=== PATIENT | female | born 1995 | race Caucasian/White ===

== ENCOUNTER 2017-05-07 10:16 | Emergency (ER) | payer BC, SELFPAY ==
[2017-05-07 10:17] VITALS: BP 125/84; PULSE 110; RESP 18; TEMP 36.6; O2SAT 100; BMI 34.0
--- NOTE | 2017-05-07 10:32 | ED.VISSUMM ---
- ER Visit Summary Date of Service: 05/07/17 Chief Complaint: [Sore throat and upper respiratory infection] History of Present Illness: The patient is a 21 F [presents to the emergency department with cough, congestion, sinus pressure that started about 2 weeks ago. One week ago patient was seen by her primary care physician in the office and had a negative influenza screen. 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 Patient states today's the last day of her Z-Ion and she continues to complain of a sore throat. Patient denies any fever. Her cough is now minimal and nonproductive.] Physical Examination: [HEENT-PERRLA, EOMI. Cranial nerves II through XII grossly intact. TMs clear. Mucous membranes moist. No adenopathy. Normal pharyngeal erythema. No exudates. Uvula in the midline. No trismus. No posterior or anterior cervical lymphadenopathy noted. Cardiovascular-regular rate and rhythm without murmur or ectopy Lungs-clear to auscultation, chest wall stable without crepitus or subcu emphysema Abdomen-normoactive bowel sounds, soft, nontender, no rebound or rigidity, no peritoneal signs. Extremities-intact ?4, normal range of motion, normal pulses, atraumatic] Test Results: [None indicated] Emergency Department Course and Treatment: [At this point I reassured patient that she looked well I did not feel any further testing is indicated. Patient advised to finish her Z-Ion and otherwise this will only be symptomatic treatment for her sore throat. Patient states that she can manage with ibuprofen and does not want anything stronger for pain. Patient did want a work excuse for today being that she did not go to work and did come to the emergency department.] Treatment Plan: [Patient to push fluids and use ibuprofen as needed for discomfort.] Patient understands her illness could still be viral and may last up to 2 weeks. Disposition: [Discharged to home in stable condition. Patient to return if difficulty swallowing, increased difficulty breathing, high fevers, or condition should worsen in any way.] Impression: [Upper respiratory infection] This note was generated with [employer] dictation software. It may contain incorrect words, spelling, and punctuation that were not noted in review of the chart prior to signing ED Disposition - Plan for ED Patient: Chief Complaint: Cold Sx Referrals: Yohan Navarro MD [Primary Care Provider] -
--- NOTE | 2017-05-07 10:35 | ED.DCSUM_ITS ---
- ER Visit Summary Date of Service: 05/07/17 Chief Complaint: [Sore throat and upper respiratory infection] History of Present Illness: The patient is a 21 F [presents to the emergency department with cough, congestion, sinus pressure that started about 2 weeks ago. One week ago patient was seen by her primary care physician in the office and had a negative influenza screen. 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 Patient states today's the last day of her Z-Ion and she continues to complain of a sore throat. Patient denies any fever. Her cough is now minimal and nonproductive.] Physical Examination: [HEENT-PERRLA, EOMI. Cranial nerves II through XII grossly intact. TMs clear. Mucous membranes moist. No adenopathy. Normal pharyngeal erythema. No exudates. Uvula in the midline. No trismus. No posterior or anterior cervical lymphadenopathy noted. Cardiovascular-regular rate and rhythm without murmur or ectopy Lungs-clear to auscultation, chest wall stable without crepitus or subcu emphysema Abdomen-normoactive bowel sounds, soft, nontender, no rebound or rigidity, no peritoneal signs. Extremities-intact ?4, normal range of motion, normal pulses, atraumatic] Test Results: [None indicated] Emergency Department Course and Treatment: [At this point I reassured patient that she looked well I did not feel any further testing is indicated. Patient advised to finish her Z-Ion and otherwise this will only be symptomatic treatment for her sore throat. Patient states that she can manage with ibuprofen and does not want anything stronger for pain. Patient did want a work excuse for today being that she did not go to work and did come to the emergency department.] Treatment Plan: [Patient to push fluids and use ibuprofen as needed for discomfort.] Patient understands her illness could still be viral and may last up to 2 weeks. Disposition: [Discharged to home in stable condition. Patient to return if difficulty swallowing, increased difficulty breathing, high fevers, or condition should worsen in any way.] Impression: [Upper respiratory infection] This note was generated with [employer] dictation software. It may contain incorrect words, spelling, and punctuation that were not noted in review of the chart prior to signing ED Disposition - Plan for ED Patient: Chief Complaint: Cold Sx Referrals: Yohan Navarro MD [Primary Care Provider] -
--- NOTE | 2017-05-07 10:36 | ED.DEP ---
ED Disposition - Plan for ED Patient: Chief Complaint: Cold Sx Instructions: ED Upper Resp Infec Abx Tx Referrals: Yohan Navarro MD [Primary Care Provider] - 3-5 Days
== END 2017-05-07 10:45 | disposition home or self-care (01) ==
PROVIDERS: Emergency Provider Emergency Medicine; Family Provider Family Medicine; PCP Family Medicine
DX: J06.9 Acute upper respiratory infection, unspecified (principal); Z79.899 Other long term (current) drug therapy
CPT/HCPCS: 99282

== ENCOUNTER → 2017-07-18 09:22 | Outpatient (CLI) | payer BC, SELFPAY ==
[2017-07-18 10:33] LABS: Cholesterol 193 mg/dL (200); High Density Lipoprotein 51 mg/dL; Triglycerides 105 mg/dL; Very Low Density Lipoprotein 21 mg/dL (5-40)
== END ==
PROVIDERS: Family Provider Family Medicine; PCP Family Medicine; Visit Provider Family Medicine
DX: Z00.00 Encounter for general adult medical examination without abnormal findings (principal)
CPT/HCPCS: 36415; 80061

== ENCOUNTER → 2017-08-28 11:40 | Outpatient (CLI) | payer BC, SELFPAY ==
--- NOTE | 2017-08-28 11:40 | DT_ITS ---
This patient was seen during an EMR downtime August 26, 2017 - September 02, 2017. This patient may have a combination of paper and electronic documentation or all paper documentation. All documentation is viewable within the e-chart portion of [employer] for each patient visit.
== END ==
PROVIDERS: Family Provider Family Medicine; PCP Family Medicine; Visit Provider Otolaryngology Otolaryngology/Facial Plastic Surgery
DX: J02.9 Acute pharyngitis, unspecified (principal)
CPT/HCPCS: 87070

== ENCOUNTER → 2017-09-09 08:37 | Outpatient (CLI) | payer BC, SELFPAY ==
--- NOTE | 2017-09-09 08:43 | RAD_ITS ---
STUDY: X-RAY - ESOPHAGUS (BARIUM SWALLOW) WITH FLUOROSCOPY REASON FOR EXAM: Female, 22 years old. Difficulty swallowing. TECHNIQUE: 15 view(s) of the esophagus were obtained following swallowing of barium. FLUOROSCOPY TIME (if supplied): (0:24) minutes/seconds COMPARISON: None. FINDINGS: There is no demonstrated esophageal foreign body. There is no demonstrated stricture or mucosal abnormality. Normal gastroesophageal junction, without a demonstrated hiatal hernia. The patient ingested a 12 mm tablet of barium without any difficulty. Normal visualized aortic arch and descending thoracic aorta. Normal visualized pulmonary parenchyma. Normal visualized osseous structures of the thorax. RAD/Esophagus Only IMPRESSION: Normal plain film x-ray examination (barium swallow) of the esophagus. Electronically Signed: Pineda Arreaga MD at 10:38 EDT Tel [phone], Service support ,
== END ==
PROVIDERS: Family Provider Family Medicine; PCP Family Medicine; Visit Provider Otolaryngology Otolaryngology/Facial Plastic Surgery
DX: R49.0 Dysphonia (principal)
CPT/HCPCS: 74220

== ENCOUNTER → 2017-11-01 10:37 | Outpatient (CLI) | payer BC, SELFPAY | PROVIDERS: Family Provider Family Medicine; PCP Family Medicine; Visit Provider Family Medicine | DX: N39.0 Urinary tract infection, site not specified (principal) | CPT/HCPCS: 87086; 87088 ==

== ENCOUNTER 2020-01-01 07:12 | Emergency (ER) | payer OTHER, SELFPAY ==
[2020-01-01 07:15] VITALS: BP 141/82; PULSE 109; RESP 18; TEMP 36.3; O2SAT 97; BMI 43.9
--- NOTE | 2020-01-01 07:34 | CT_ITS ---
STUDY: CT BRAIN WITHOUT CONTRAST REASON FOR EXAM: Female, 24 years old. ALLERGIC REACTION TO MIGRAINE MED -- HEADACHE, UPPER EXT BILAT PARASTHESI RADIATION DOSAGE (If Supplied By Facility): CTDIvol = ( 44.99 ) mGy, DLP = ( 745.49 ) mGycm TECHNIQUE: Transaxial CT imaging of the brain was performed without administration of intravenous contrast material. Individualized dose optimization techniques were used for this CT. COMPARISON: 01/12/2012 FINDINGS: Normal soft tissue structures. Normal calvarium. Normal size ventricles and extra-axial spaces for the patient''s age. Normal white matter tracts of the cerebral hemispheres. Normal basal ganglia and thalami. Normal brainstem. Normal cerebellum. There is no intracranial hemorrhage. There are no findings of an acute ischemic infarction. Normal visualized paranasal sinuses. CT/Brain/Head without Contrast IMPRESSION: Normal unenhanced CT scan of the brain. Electronically Signed: Alirio Vale DO at 8:09 EDT Tel [phone], Service support ,
--- NOTE | 2020-01-01 07:52 | ED.DCSUM_ITS ---
- ER Visit Summary Date of Service: 01/01/20 Chief Complaint: Allergic reaction History of Present Illness: The patient is a [address] Holt. Patient reports that she has been getting migraines lately and that at 615 this morning she took Imitrex for the first time. She reports that approximately 15 minutes later she began having muscle aching and tingling in her arms bilaterally. She does have a history of anxiety and states that she does feel very anxious. Patient denies any family history of migraines or aneurysms. She is never had any imaging of her brain. She denies any other allergic symptoms. No rash. No swelling of her tongue. No difficulty breathing. Does report that she has a headache this 5-10 severity and nausea. No vomiting. No abdominal pain or diarrhea. Her last menstrual period was this week. Physical Examination: Vitals: Stable. Afebrile. General: Well-nourished and well-developed. Head: Normocephalic atraumatic. Neck: Supple, no lymphadenopathy. No JVD. Nontender. Cardiovascular: Regular rate and rhythm. No murmurs. Respiratory: No respiratory distress. Clear to auscultation bilaterally. Abdominal: Soft, nontender, nondistended, normal bowel sounds. No guarding, rebound, or peritoneal signs. Back: Nontender. Extremities: Nontender, no edema. Skin: Normal color, no rash. Neurologic: Alert and oriented ?3. Cranial nerves II through XII are intact. Normal strength and sensation. Psych: Normal affect. Test Results: CT brain shows no acute disease Emergency Department Course and Treatment: I had a prolonged discussion the patient about the fact that it we need to just wait for the Imitrex to wear off. I did offer to treat her migraine or allergic reaction. However, I am concerned that giving her other medications may confuse the picture of the adv erse reaction that she is experiencing to Imitrex. Treatment Plan: Patient will be discharged instructions to not take Imitrex anymore. She is given a prescription for Reglan for her headaches. Follow-up with her primary care physician 1 to 2 days if not improving. Return to the emergency department for any worsening symptoms. Disposition: To home in improved and stable condition. Impression: 1. Adverse reaction to Imitrex. 2. Migraine headache. This note was generated with [employer] software. It may contain incorrect words, spelling, and punctuation that were not noted in review of the chart prior to signing ED Disposition - Plan for ED Patient: Instructions: ED Drug React Adverse Other Prescriptions: Metoclopramide [Reglan] 10 mg PO 4X/DAY PRN #20 tablet PRN Reason: Headache Referrals: Kenya Dumont MD [Primary Care Provider] - 1-2 Days if not improving
== END 2020-01-01 08:14 | disposition home or self-care (01) ==
LOC: ED 08:05
PROVIDERS: Emergency Provider Emergency Medicine
DX: R20.2 Paresthesia of skin (principal); M79.10 Myalgia, unspecified site; T39.8X5A Adverse effect of other nonopioid analgesics and antipyretics, not elsewhere classified, initial encounter; Y92.9 Unspecified place or not applicable; G43.909 Migraine, unspecified, not intractable, without status migrainosus; F32.9 Major depressive disorder, single episode, unspecified; F41.9 Anxiety disorder, unspecified
CPT/HCPCS: 70450; 99282

== ENCOUNTER 2020-03-31 02:00 | Emergency (ER) | payer OTHER, SELFPAY ==
[2020-03-31 02:03] VITALS: BP 128/116; PULSE 128; RESP 18; TEMP 36.8; O2SAT 95; BMI 43.5
[2020-03-31] MEDS: 0.9% Normal Saline 1,000 ML 1000 ML IV (02:14)
[2020-03-31] MEDS: Ondansetron 4 MG/2 ML Vial IV (02:14)
--- NOTE | 2020-03-31 02:52 | ED.DCSUM_ITS ---
History of Present Illness Chief Complaint: Nausea/Vomiting/Diarrhea Informant: Patient Onset: Hours Context: Sudden Onset Timing: Intermittent Quality: Colicky abdominal pain with nausea, vomiting and diarrhea Location: Generalized Current Severity: Mild Maximum Severity: Severe Worsened by: Vomiting and diarrhea Relieved by: Nothing Associated Symptoms: Dry mouth and concern for dehydration Narrative: Patient is a 24-year-old female who presents with abdominal pain that is colicky in nature with nausea, vomiting diarrhea. This started after she ate at 1700. Other individuals ate which she had and have no symptoms. She denies fever or chills. She denies HEENT symptoms. She denies cardiac respiratory symptoms. She denies rash. She denies any ill exposures. 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 Prior similar symptoms: No Recent Illness/Hospitalization: No - Past Medical History (1) No significant past medical history Status: Acute Past Medical History - Allergies and Home Meds Allergies/Adverse Reactions: Allergies cefdinir Allergy (Verified 03/31/20 02:03) Hives Penicillins Allergy (Verified 03/31/20 02:03) Hives prednisone Adverse Reaction (Verified 03/31/20 02:03) headache Primary Care Physician: Kurtis Koenig MD [Primary Care Provider] - 3-5 Days if not improving Prior records reviewed: Yes Surgical History: cholecystectomy Lives: Alone Smoking Status: Never smoker Alcohol: None Drugs: None Review of Systems General: Reports: Malaise. Denies: Chills, Fever, Subjective Eyes: Denies: Visual changes - bilaterally, Blurred Vision - bilaterally ENT: Denies: Rhinorrhea, Sore throat Cardiovascular: Denies: Chest pain, Palpitations Respiratory: Denies: Dyspnea, Cough, Dyspnea on exertion Gastrointestinal: Reports: Abdominal pain, Nausea, Vomiting, Diarrhea. Denies: Melena, Hematochezia Genitourinary: Denies: Dysuria, Hematuria, Frequency Musculoskeletal: Denies: Myalgias, Arthralgias, Back pain Skin: Denies: Rash Neurological: Denies: Weakness, Parasthesia Hematologic: Denies: Easy bruising, Easy bleeding Physical Exam Vital Signs/Narrative: Vital Signs Temp Pulse Resp BP Pulse Ox 03/31/20 02:03 98.3 F 128 H 18 128/116 H 95 Inital Vital Signs reviewed: Yes General: Well nourished, Well developed Head: Normocephalic, Atraumatic Eyes: Perrl, EOMI. Negative for: Pale conjunctiva, Scleral icterus ENT: No rhinorrhea, Dry mucous membranes Neck: Supple, Nontender, No lymphadenopathy Cardiovascular: Regular rhythm, No murmurs, Normal S1, Normal S2, Tachycardia Respiratory: No distress, CTA bilaterally Abdomen: Soft, Nontender, Nondistended, No masses, Hyperactive bowel sounds, - - Are noted, cholecystectomy. Negative for: Normal bowel sounds, Hepatomegaly, Splenomegaly Rectal: Deferred Back: Nontender, Normal Inspection Extremities: Nontender, No edema Skin: No rash, No Trauma, Pallor. Negative for: Normal color, Cyanosis, Diaphoresis, Jaundice Neurological: Alert, Oriented x3, Cranial nerves II-XII grossly intact, Normal Strength, Normal Sensation Psychological: Normal affect Diagnostic/Tx/Re-eval - Medical Decision Making Medically patient is dehydrated. 1 L of normal saline was ordered. Zofran was ordered. Now will order Imodium and Bentyl. Will then have nurse perform p.o. challenge. Since she is young on no antihypertensive meds with no significant past medical history laboratory tests are not indicated. I was informed by patient's nurse at 0440 that she feels much better. She will be discharged to home. ED Disposition - Plan for ED Patient: Disposition: Home or Assisted Living Diagnosis: Abdominal pain, vomiting, and diarrhea, Mild dehydration Instructions: ED Vomiting and Diarrhea ... Prescriptions: Dicyclomine HCl [Bentyl] 20 mg PO TIDAC #10 cap Prescription Printed Referrals: Kurtis Koenig MD [Primary Care Provider] - 3-5 Days if not improving
[2020-03-31] MEDS: Loperamide 2 MG Capsule 4 MG PO (03:03)
[2020-03-31] MEDS: Dicyclomine 10 MG Capsule 20 MG PO (03:03)
[2020-03-31] MEDS: Metoclopramide 10 MG/2 ML Vial 5 MG IV (03:41)
[2020-03-31 04:55] VITALS: RESP 16
== END 2020-03-31 04:55 | disposition home or self-care (01) ==
PROVIDERS: Emergency Provider Emergency Medicine; PCP Family Medicine
DX: R10.84 Generalized abdominal pain (principal); R11.2 Nausea with vomiting, unspecified; R19.7 Diarrhea, unspecified; E86.0 Dehydration; Z90.49 Acquired absence of other specified parts of digestive tract
CPT/HCPCS: 96361; 96374; 96375; 99283; J7030; A4216; J2405

== ENCOUNTER 2020-08-28 08:33 | Emergency (ER) | payer MEDICAID, SELFPAY ==
[2020-08-28 08:34] VITALS: BP 118/94; PULSE 105; RESP 16; TEMP 36.4; O2SAT 97; BMI 44.8
--- NOTE | 2020-08-28 09:17 | EDS_ITS ---
HPI History of Present Illness Chief Complaint: Headache Informant: patient Onset/Context/Timing Onset: Yesterday Mechanism/Context: Blunt Injury (accidentally hit head w/ trunk lid of her car while closing it) Quality of Pain: Aching Location: Head Current Severity: Mild Maximum Severity: Moderate Worsened by: Light Relieved by: Ibuprofen Associated Symptoms Associated Symptoms: Negative for Parasthesias, Weakness, Loss of function, Inability to ambulate, Loss of consciousness and Amnesia Narrative Narrative: Patient accidentally hit herself in the head with the trunk of her car she was closing it yesterday. There is no loss of consciousness. She has had no focal neurologic symptoms. She has had a little photophobia and a headache, no vomiting mental status changes or neck pain. She takes no blood thinning medications or antiplatelet medications. [facility] Medical History Anxiety Depression Home Medications María Elena-D 24 Hour 1 tab.sr PO DAILY 10/27/13 [History Last Taken Unknown] fluoxetine 40 mg PO DAILY 01/01/20 [History Last Taken Unknown] norethindrone (contraceptive) 0.35 mg PO DAILY 01/01/20 [History Last Taken Unknown] buspirone 5 mg PO QHS 03/31/20 [History Last Taken Unknown] dicyclomine 20 mg PO TIDAC #10 cap 03/31/20 [Rx Last Taken Unknown] Allergy/AdvReac Type Severity Reaction Status Date / Time cefdinir Allergy Hives Verified 08/28/20 08:37 iodine Allergy Hives Verified 08/28/20 08:37 Penicillins Allergy Hives Verified 08/28/20 08:37 prednisone AdvReac headache Verified 08/28/20 08:37 sumatriptan AdvReac Other Verified 08/28/20 08:37 Social History Smoking Status: Never smoker ROS ROS ED Constitutional Constitutional ED: Denies chills or fever(s) Eyes Eyes: Reports photophobia; Denies change in vision or diplopia ENT ENT ED: Reports as per HPI; Denies rhinorrhea or sore throat Cardiovascular Cardiovascular: Denies chest pain or palpitations Respiratory/Chest Respiratory/Chest: Denies cough or dyspnea Gastrointestinal Gastrointestinal: Denies abdominal pain, diarrhea, nausea or vomiting Genitourinary Genitourinary ED: Denies dysuria or hematuria Musculoskeletal Musculoskeletal: Denies back pain or neck pain Integumentary Denies abscess or rash Neurologic Neurologic: Reports headache(s); Denies paresthesias or weakness Psychiatric Psychiatric: Denies anxiety or suicidal thoughts EXAM Physical Exam Const Vital Signs: 08/28/20 08:34 Temperature 97.5 F L Temperature Source Temporal Pulse Rate 105 H Respiratory Rate 16 Blood Pressure 118/94 H Blood Pressure Mean 102 Pulse Ox 97 Oxygen Delivery Method Room Air Positive well nourished and well developed General Appearance ED: well developed and NAD HEENT Reports moist mucous membranes HEENT Narrative: Mildly tender right high occipital scalp without hematoma, evidence of trauma, crepitance, depression normocephalic, normal to inspection and atraumatic Eyes PERRL and EOMs intact bilaterally Neck full ROM and supple Resp normal respiratory effort and clear to auscultation bilaterally Cardio regular rate, regular rhythm and no murmurs GI non-tender and non-distended Auscultation: normoactive bowel sounds Palpation: soft Back/Spine no CVA tenderness General Back: other FROM Extremity normal to inspection General Extremety ED: Negative for edema, pulses abnormal or tenderness General Extremity: Negative for edema or pulses abnormal Neuro oriented x3, CN's II-XII intact bilaterally and no sensory deficits noted Sensorium / Orientation: awake and alert Motor Exam: strength 5/5 throughout Skin no rashes or lesions noted and no wounds MDM MDM MDM Narrative Medical decision making narrative: GCS 15, patient is well-appearing, having minor concussion symptoms after a relatively minor head injury. She is reassured, supportive care advised and follow-up if symptoms persist 1 week or longer. She does not require CT scanning via the [place] head CT rule at this time, we discussed reasons to return. She is comfortable with that plan. Discharge Plan Triage Chief Complaint: Headache ED Provider: Moy Rosales Dx/Rx/DC Orders Clinical Impression: Closed head injury without loss of consciousness Instructions: ED Head Injury (Adult) Prescriptions: No Action María Elena-D 24 Hour 1 TAB.SR tablet extended release 24 hr 1 tab.sr PO DAILY RF: 0 norethindrone (contraceptive) 0.35 MG tablet 0.35 mg PO DAILY RF: 0 fluoxetine 20 MG capsule 40 mg PO DAILY RF: 0 buspirone 5 MG tablet 5 mg PO QHS RF: 0 dicyclomine 10 MG capsule 20 mg PO TIDAC Qty: 10 RF: 0 Primary Care Provider: Kurtis Koenig Referrals: Kurtis Koenig MD [Primary Care Provider] - 1 Week if not improving Disposition Disposition: Home, self care
[2020-08-28 09:32] VITALS: PULSE 79; RESP 18; O2SAT 99
--- NOTE | 2020-08-28 09:32 | ED.RN ---
THIS NURSE REVIEWED D/C INSTRUCTIONS WITH PT. PT VERBALIZED UNDERSTANDING OF INSTRUCTIONS. PT DENIES FURTHER NEEDS OR QUESTIONS AT THIS TIME. PT AMBULATES FROM ROOM ON OWN WITHOUT ASSISTANCE FROM STAFF
== END 2020-08-28 09:33 | disposition home or self-care (01) ==
LOC: ED 09:30
PROVIDERS: Emergency Provider Emergency Medicine; PCP Family Medicine
DX: S09.90XA Unspecified injury of head, initial encounter (principal); F41.9 Anxiety disorder, unspecified; X58.XXXA Exposure to other specified factors, initial encounter; Z79.899 Other long term (current) drug therapy
CPT/HCPCS: 99282

== ENCOUNTER 2021-04-03 08:00 | Emergency (ER) | payer OTHER, MEDICAID, SELFPAY ==
[2021-04-03 08:01] VITALS: BP 120/74; PULSE 126; RESP 18; TEMP 36.6; O2SAT 95; BMI 43.9
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
[2021-04-03] MEDS: 0.9% Normal Saline 1,000 ML 1000 ML IV (09:31)
[2021-04-03] MEDS: Ketorolac 30 MG/ML Syringe IV (09:31)
[2021-04-03 09:39] LABS: Anion Gap 7 (5-15); BUN 8 mg/dL (7-18); BUN/Creat Ratio 12.2 RATIO (10-20); Chloride 105 mmol/L (98-107); Creatinine, Serum 0.66 mg/dL (0.55-1.02); EST Glomerular Filtration Rate 117 mL/min (>60); Est Glom Filt Rate - Afr Amer 142 mL/min (>60); Estimated Creatinine Clearance 103.95 ml/min; Glucose 85 mg/dL (74-106); Potassium 3.9 mmol/L (3.5-5.1); Sodium Level 139 mmol/L (136-145)
[2021-04-03 11:28] VITALS: PULSE 80; RESP 17; O2SAT 98
== END 2021-04-03 11:29 | disposition home or self-care (01) ==
PROVIDERS: Emergency Provider Emergency Medicine; PCP Family Medicine; Visit Provider Emergency Medicine
DX: J32.9 Chronic sinusitis, unspecified (principal); F41.9 Anxiety disorder, unspecified; F32.A Depression, unspecified; K21.9 Gastro-esophageal reflux disease without esophagitis; G43.909 Migraine, unspecified, not intractable, without status migrainosus; Z79.82 Long term (current) use of aspirin; Z79.899 Other long term (current) drug therapy; R19.7 Diarrhea, unspecified
CPT/HCPCS: 80048; 96361; 96374; 99283; J7030; A4216

== ENCOUNTER 2021-04-12 16:51 | Emergency (ER) | payer OTHER, MEDICAID, SELFPAY ==
[2021-04-12 16:52] VITALS: BP 119/76; PULSE 108; RESP 20; TEMP 36.4; O2SAT 98; BMI 44.5
--- NOTE | 2021-04-12 16:55 | EKG12_ITS ---
Test Reason : CP Blood Pressure : / mmHG Vent. Rate : 093 BPM Atrial Rate : 093 BPM P-R Int : 116 ms QRS Dur : 072 ms QT Int : 350 ms P-R-T Axes : 074 074 059 degrees QTc Int : 435 ms Normal sinus rhythm Normal ECG Confirmed by FLIP JEAN, VASQUEZ ([id number]), magazine editor GAYLE MERA ([id number]) on 04/14/2021 8:57:54 AM Referred By: MAGI/ALLAN Confirmed By:VASQUEZ CASTELAN MD
[2021-04-12 16:56] VITALS: RESP 20; O2SAT 98
--- NOTE | 2021-04-12 17:09 | NURSING ---
NO OLD EKGS
--- NOTE | 2021-04-12 17:35 | RAD_ITS ---
STUDY: X-RAY CHEST REASON FOR EXAM: Female, 25 years old. CHEST PAIN COUGH TECHNIQUE: XR Chest 1 View COMPARISON: None FINDINGS: There is no demonstrated pleural abnormality. Normal size heart. Normal mediastinum and emma. Normal visualized pulmonary arteries. Normal visualized aortic arch and descending thoracic aorta. Normal visualized thoracic spine. Normal visualized ribs, clavicles, and shoulders. There is no demonstrated abnormality of the visualized soft tissue structures of the upper abdomen. RAD/Chest 1 View (Portable) IMPRESSION: There are no acute findings. Electronically Signed: Daniel Oliva MD at 17:57 EST , Service support ,
[2021-04-12 17:37] LABS: Anion Gap 7 (5-15); BUN 13 mg/dL (7-18); BUN/Creat Ratio 19.7 RATIO (10-20); Calcium,Total 8.5 mg/dL (8.5-10.1); Chloride 109 mmol/L (98-107); Creatinine, Serum 0.66 mg/dL (0.55-1.02); EST Glomerular Filtration Rate 116 mL/min (>60); Est Glom Filt Rate - Afr Amer 141 mL/min (>60); Estimated Creatinine Clearance 103.95 ml/min; Glucose 103 mg/dL (74-106); Potassium 3.8 mmol/L (3.5-5.1); Sodium Level 139 mmol/L (136-145)
[2021-04-12 18:03] LABS: Absolute Lymphocyte Count 3.58 X10^3/uL (0.83-4.51); Absolute Neutrophil Count 4.6 X10^3/uL (2.0-7.7); Basophil# 0.04 X10^3/uL; Basophil% 0.4 % (0-1); Eosinophil# 0.27 X10^3/uL; Eosinophils% 2.9 % (0-5); Hemoglobin 13.5 g/dL (12.0-15.0); Lymphocyte # 3.58 X10^3/ul (0.83-4.51); Mean Corp Hgb Conc 33.8 g/dL (32-36); Mean Corpuscular Hgb 29.1 pg (27.0-32.0); Mean Corpuscular Volume 86.2 fL (81-99); Mean Platelet Vol. 10.2 fl (6.2-12.0); Monocyte# 0.66 X10^3/uL; Monocyte% 7.2 % (0-10); NRBC Flagged by Analyzer 0 % (0-5); Neutrophil # 4.59 X10^3/uL (2.7-7.7); Neutrophil % 50.2 % (47-70); Platelet Count 363 K/mm3 (150-450); RBC Distribution Width CV 14.2 % (11.6-14.6); RBC Distribution Width SD 44.7 fl (35.1-43.9); Red Blood Count 4.64 M/mm3 (4.2-5.4); White Blood Count 9.2 K/mm3 (4.4-11.0)
[2021-04-12 18:18] VITALS: BP 138/77; PULSE 76; RESP 15; TEMP 36.8; O2SAT 97
[2021-04-12 18:19] LABS: Mucous, Urine 0 SEEN /hpf (<or=2+); Red Blood Cells-Urine 0 SEEN /hpf (0-5)
[2021-04-12 18:22] VITALS: O2SAT 97
[2021-04-12 18:27] LABS: Color, Urine Yellow (Yellow); Glucose, Dipstick Normal (Normal); Ketone-Dipstick 5 mg/dl (Negative); Leukocyte Esterase-Dipstick 25 /ul (Negative); Nitrite-Dipstick Negative (Negative); Occult Blood-Urine Negative /ul (Negative); Protein-Dipstick 15 mg/dl (Negative); Urine Bilirubin Dipstick Negative (Negative); Urine Clarity Clear (Clear); Urine Urobilinogen Normal (Normal)
[2021-04-12 18:38] LABS: Bacteria 1+ /hpf (None Seen); Squamous Epithelial Cells - UA 0-5 SEEN /hpf (5-10); White Blood Cells 0-5 SEEN /hpf (0-5)
[2021-04-12 18:42] LABS: Internal QC Validated? YES +Cl - CLEAR BKGD; Pregnancy, Urine Negative Negative
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
[2021-04-12 19:36] LABS: D-Dimer Quantitative (DVT/PE) 0.31 FEU/ug/m (0.27-0.49)
[2021-04-12 20:03] VITALS: BP 138/74; PULSE 62; RESP 15; O2SAT 97
== END 2021-04-12 20:04 | disposition home or self-care (01) ==
PROVIDERS: Emergency Provider Emergency Medicine; PCP Family Medicine; Visit Provider Emergency Medicine
DX: U07.1 COVID-19 (principal); Z68.41 Body mass index [BMI] 40.0-44.9, adult; E66.9 Obesity, unspecified; F32.A Depression, unspecified; F41.9 Anxiety disorder, unspecified; Z79.82 Long term (current) use of aspirin; Z79.899 Other long term (current) drug therapy
CPT/HCPCS: 71045; 80048; 81001; 81025; 85025; 85379; 93005; 94760; 99283

== ENCOUNTER 2021-05-23 10:52 | Emergency (ER) | payer MEDICAID, SELFPAY ==
[2021-05-23 10:53] VITALS: BP 132/82; PULSE 108; RESP 16; TEMP 35.8; O2SAT 98; BMI 44.2
--- NOTE | 2021-05-23 11:03 | VDLE_ITS ---
Reason For Study: Pain Procedure LEFT This is a venous duplex using B-mode, color GSV is normal. flow and spectral Doppler. CFV is compressible, spontaneous, phasic, Exam performed portable in ED. competent, and demonstrates normal A preliminary report was called and/or faxed augmentation. to ED. FV is compressible, spontaneous, phasic, competent and demonstrates normal augmentation. POP V is compressible, spontaneous, phasic, competent and demonstrates normal augmentation. T/P Trunk is compressible. PTV is compressible. LT PerV is compressible. VL/Venous Duplex US, Unilateral Interpretation Summary There is no evidence of left lower extremity deep vein thrombosis. Left great s aphenous vein appears patent and compressible segmentally. Ordering Physician: Alexandru Fox Referring Physician: Kurtis Koenig Performed By: Reyna Rosenthal RVT
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
== END 2021-05-23 12:07 | disposition home or self-care (01) ==
PROVIDERS: Emergency Provider Emergency Medicine; PCP Family Medicine; Visit Provider Emergency Medicine
DX: M54.42 Lumbago with sciatica, left side (principal); U09.9 Post COVID-19 condition, unspecified; F32.A Depression, unspecified; F41.9 Anxiety disorder, unspecified; Z79.82 Long term (current) use of aspirin; Z79.899 Other long term (current) drug therapy
CPT/HCPCS: 93971; 99282

== ENCOUNTER 2021-10-29 07:04 | Emergency (ER) | payer OTHER, MEDICAID, SELFPAY ==
[2021-10-29 07:04] VITALS: BP 123/85; PULSE 98; RESP 16; TEMP 36.7; O2SAT 97; BMI 45.7
[2021-10-29 07:06] VITALS: BP 123/85; PULSE 74; RESP 16; TEMP 36.8; O2SAT 99
--- NOTE | 2021-10-29 07:17 | CT_ITS ---
EXAM: CT ABDOMEN AND PELVIS WITHOUT INTRAVENOUS CONTRAST CLINICAL INDICATION: Pain TECHNIQUE: Helically acquired images were obtained of the abdomen and pelvis without intravenous contrast. This CT exam was performed using one or more of the following dose reduction techniques: automated exposure control, adjustment of the mA and/or kV according to patient size, and/or use of iterative reconstruction technique. This report was created using [employer] report generation technology. COMPARISON: CT Abdomen Pelvis dated October 10, 2013 FINDINGS: LOWER THORAX: Normal. Lung bases are clear. No cardiomegaly. No pericardial effusion. ABDOMEN: LIVER: Normal. Homogeneous. GALLBLADDER AND BILE DUCTS: Interval cholecystectomy. No intra- or extrahepatic biliary ductal dilation. PANCREAS: Normal. No focal cystic mass. SPLEEN: Normal. Normal size without focal cystic or solid mass. ADRENALS: Normal. No nodules. KIDNEYS AND URETERS: Normal. Normal renal size and position. No hydronephrosis. STOMACH AND BOWEL: Normal. No bowel distention. No focal inflammatory change. PELVIS: APPENDIX: Appendix is visualized and normal in appearance. BLADDER: Normal. REPRODUCTIVE: Unremarkable as visualized. No mass. ABDOMEN and PELVIS: INTRAPERITONEAL SPACE: Normal. No ascites or other fluid collection. No free air. BONES/JOINTS: Normal. No suspicious lytic or blastic abnormality. SOFT TISSUES: Normal. No discrete abdominal or pelvic wall hernia. VASCULATURE: Normal. Abdominal aorta is non-dilated. LYMPH NODES: Mildly prominent mesenteric lymph nodes noted suggestive of reactive change. CT/Abdomen/Pelvis without Cont IMPRESSION: 1. No acute abdominal or pelvic abnormality. 2. Reactive mesenteric lymph nodes. Electronically Signed: Shaquille Billy MD at 9:40 EDT ,
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
[2021-10-29 07:43] LABS: Absolute Lymphocyte Count 1.95 X10^3/uL (0.83-4.51); Absolute Neutrophil Count 3.8 X10^3/uL (2.0-7.7); Basophil# 0.04 X10^3/uL; Basophil% 0.6 % (0-1); Eosinophil# 0.17 X10^3/uL; Eosinophils% 2.6 % (0-5); Hemoglobin 13.7 g/dL (12.0-15.0); Lymphocyte # 1.95 X10^3/ul (0.83-4.51); Lymphocyte % 29.3 % (19-41); Mean Corp Hgb Conc 32.6 g/dL (32-36); Mean Corpuscular Hgb 28.6 pg (27.0-32.0); Mean Corpuscular Volume 87.7 fL (81-99); Mean Platelet Vol. 9.8 fl (6.2-12.0); Monocyte% 10.5 % (0-10); NRBC Flagged by Analyzer 0 % (0-5); Neutrophil # 3.77 X10^3/uL (2.7-7.7); Neutrophil % 56.5 % (47-70); Platelet Count 344 K/mm3 (150-450); RBC Distribution Width CV 14.5 % (11.6-14.6); RBC Distribution Width SD 46.6 fl (35.1-43.9); Red Blood Count 4.79 M/mm3 (4.2-5.4); White Blood Count 6.7 K/mm3 (4.4-11.0)
[2021-10-29] MEDS: 0.9% Normal Saline 1,000 ML 1000 ML IV (07:47)
[2021-10-29] MEDS: Dicyclomine 20 MG/2 ML Vial IM (07:49)
[2021-10-29 08:00] LABS: ALB/GLOB Ratio 0.8 RATIO (0.9-2.4); AST(SGOT) 21 U/L (15-37); Alanine Aminotransfer ALT/SGPT 30 U/L (13-56); Albumin, Serum 3.3 g/dL (3.2-5.0); Alkaline Phosphatase 123 U/L (45-117); Anion Gap 4 (5-15); BUN 9 mg/dL (7-18); BUN/Creat Ratio 12.6 RATIO (10-20); Chloride 110 mmol/L (98-107); Creatinine, Serum 0.72 mg/dL (0.55-1.02); EST Glomerular Filtration Rate 105 mL/min (>60); Est Glom Filt Rate - Afr Amer 127 mL/min (>60); Estimated Creatinine Clearance 98.81 ml/min; Globulin 4.3 g/dL (2.2-4.2); Glucose 101 mg/dL (74-106); Lipase 60 U/L (73-393); Potassium 4.2 mmol/L (3.5-5.1); Protein, Total 7.6 g/dL (6.4-8.2); Sodium Level 138 mmol/L (136-145)
[2021-10-29 08:34] LABS: Mucous, Urine 0 SEEN /hpf (<or=2+); Red Blood Cells-Urine 0 SEEN /hpf (0-5)
[2021-10-29 08:37] LABS: Color, Urine Yellow (Yellow); Glucose, Dipstick Normal (Normal); Ketone-Dipstick Negative (Negative); Leukocyte Esterase-Dipstick 25 /ul (Negative); Nitrite-Dipstick Negative (Negative); Occult Blood-Urine Negative /ul (Negative); Protein-Dipstick 30 mg/dl (Negative); Specific Gravity, Urine 1.015 (1.002-1.030); Urine Bilirubin Dipstick Negative (Negative); Urine Clarity Clear (Clear); Urine Urobilinogen Normal (Normal)
[2021-10-29 08:54] LABS: Bacteria 1+ /hpf (None Seen); Internal QC Validated? YES +Cl - CLEAR BKGD; Pregnancy, Urine Negative Negative; Squamous Epithelial Cells - UA 0-5 SEEN /hpf (5-10); White Blood Cells 0-5 SEEN /hpf (0-5)
[2021-10-29 09:57] VITALS: BP 132/74; PULSE 74; RESP 19; TEMP 37; O2SAT 98
[2021-10-29 10:02] VITALS: BP 130/78; PULSE 77; RESP 17; TEMP 37.1; O2SAT 99
== END 2021-10-29 10:36 | disposition home or self-care (01) ==
PROVIDERS: Emergency Provider Emergency Medicine; PCP Family Medicine; Visit Provider Emergency Medicine
DX: R10.9 Unspecified abdominal pain (principal); R19.7 Diarrhea, unspecified; Z90.49 Acquired absence of other specified parts of digestive tract; Z87.440 Personal history of urinary (tract) infections
CPT/HCPCS: 74176; 80053; 81001; 81025; 83690; 85025; 96360; 96361; 96372; 99284; J7030; A4216

== ENCOUNTER 2021-12-19 08:55 | Emergency (ER) | payer OTHER, MEDICAID, SELFPAY ==
[2021-12-19 08:56] VITALS: BP 111/87; PULSE 119; RESP 18; TEMP 36.6; O2SAT 96; BMI 47.2
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
[2021-12-19] MEDS: dexAMETHasone 4 MG Tablet 12 MG PO (10:56)
[2021-12-19 10:58] VITALS: BP 138/74; PULSE 62; RESP 15; O2SAT 98
== END 2021-12-19 10:59 | disposition home or self-care (01) ==
PROVIDERS: Emergency Provider Emergency Medicine; PCP Family Medicine; Visit Provider Emergency Medicine
DX: J02.8 Acute pharyngitis due to other specified organisms (principal); R51.9 Headache, unspecified; F32.A Depression, unspecified; F41.9 Anxiety disorder, unspecified; Z79.899 Other long term (current) drug therapy; Z86.16 Personal history of COVID-19
CPT/HCPCS: 87811; 87880; 99283

== ENCOUNTER 2022-04-11 19:55 | Emergency (ER) | payer OTHER, MEDICAID, SELFPAY ==
[2022-04-11 19:56] VITALS: BP 122/62; PULSE 151; RESP 18; TEMP 36.7; O2SAT 98; BMI 47.2
--- NOTE | 2022-04-11 20:19 | EKG12_ITS ---
Test Reason : DYSRHYTHMIA Blood Pressure : / mmHG Vent. Rate : 116 BPM Atrial Rate : 116 BPM P-R Int : 116 ms QRS Dur : 070 ms QT Int : 330 ms P-R-T Axes : 055 063 053 degrees QTc Int : 458 ms Sinus tachycardia Otherwise normal ECG Confirmed by SHANNON JEAN, ANGÉLICA ([id number]), editor managing newspaper GAYLE MERA ([id number]) on 04/12/2022 1:40:07 PM Referred By: MANUEL Confirmed By:KITA ORTEGA MD
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
[2022-04-11] MEDS: Ondansetron 4 MG/2 ML Vial IV (20:43)
[2022-04-11] MEDS: 0.9% Normal Saline 1,000 ML 1000 ML IV (20:43)
[2022-04-11 20:48] LABS: Absolute Lymphocyte Count 0.57 X10^3/uL (0.83-4.51); Absolute Neutrophil Count 13.6 X10^3/uL (2.0-7.7); Basophil# 0.02 X10^3/uL; Basophil% 0.1 % (0-1); Hematocrit 46.6 % (37-47); Hemoglobin 15.3 g/dL (12.0-15.0); Lymphocyte # 0.57 X10^3/ul (0.83-4.51); Lymphocyte % 3.9 % (19-41); Mean Corp Hgb Conc 32.8 g/dL (32-36); Mean Corpuscular Hgb 28.8 pg (27.0-32.0); Mean Corpuscular Volume 87.6 fL (81-99); Mean Platelet Vol. 9.6 fl (6.2-12.0); Monocyte# 0.38 X10^3/uL; Monocyte% 2.6 % (0-10); NRBC Flagged by Analyzer 0 % (0-5); Neutrophil # 13.64 X10^3/uL (2.7-7.7); Neutrophil % 92.7 % (47-70); POSITIVE DIFFERENTIAL YES; Platelet Count 365 K/mm3 (150-450); RBC Distribution Width CV 14.4 % (11.6-14.6); RBC Distribution Width SD 46.2 fl (35.1-43.9); Red Blood Count 5.32 M/mm3 (4.2-5.4); White Blood Count 14.7 K/mm3 (4.4-11.0)
[2022-04-11 20:49] LABS: Differential Indicated SCAN CRITERIA MET
[2022-04-11 20:50] VITALS: BP 124/78; PULSE 94
[2022-04-11 21:03] LABS: Anion Gap 10 (5-15); BUN 20 mg/dL (7-18); BUN/Creat Ratio 27.2 RATIO (10-20); Calcium,Total 8.6 mg/dL (8.5-10.1); Chloride 108 mmol/L (98-107); Creatinine, Serum 0.73 mg/dL (0.55-1.02); EST Glomerular Filtration Rate 102 mL/min (>60); Est Glom Filt Rate - Afr Amer 123 mL/min (>60); Estimated Creatinine Clearance 93.17 ml/min; Glucose 128 mg/dL (74-106); Potassium 4.1 mmol/L (3.5-5.1); Sodium Level 141 mmol/L (136-145)
[2022-04-11 21:07] LABS: Differential Comment SCANNED
[2022-04-11 21:08] LABS: Internal QC Validated? YES +Cl - CLEAR BKGD; Pregnancy, Serum, hCG Quali. NEGATIVE Negative
[2022-04-11 21:56] VITALS: BP 135/72; PULSE 91
== END 2022-04-11 22:41 | disposition home or self-care (01) ==
PROVIDERS: Emergency Provider Emergency Medicine; PCP Family Medicine; Visit Provider Emergency Medicine
DX: A08.4 Viral intestinal infection, unspecified (principal)
CPT/HCPCS: 80048; 84703; 85025; 87428; 93005; 96361; 96374; 99284; J7030; A4216; J2405

== ENCOUNTER 2022-07-27 05:56 | Emergency (ER) | payer OTHER, MEDICAID, SELFPAY ==
[2022-07-27 05:57] VITALS: BP 136/85; PULSE 110; RESP 18; TEMP 36.4; O2SAT 97; BMI 48.3
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
[2022-07-27 06:24] LABS: Absolute Lymphocyte Count 2.69 X10^3/uL (0.83-4.51); Absolute Neutrophil Count 4.7 X10^3/uL (2.0-7.7); Basophil# 0.06 X10^3/uL; Basophil% 0.7 % (0-1); Eosinophil# 0.28 X10^3/uL; Eosinophils% 3.4 % (0-5); Hematocrit 41.8 % (37-47); Hemoglobin 13.9 g/dL (12.0-15.0); Lymphocyte # 2.69 X10^3/ul (0.83-4.51); Lymphocyte % 32.5 % (19-41); Mean Corp Hgb Conc 33.3 g/dL (32-36); Mean Corpuscular Hgb 29.7 pg (27.0-32.0); Mean Corpuscular Volume 89.3 fL (81-99); Mean Platelet Vol. 10.1 fl (6.2-12.0); NRBC Flagged by Analyzer 0 % (0-5); Neutrophil # 4.71 X10^3/uL (2.7-7.7); Platelet Count 330 K/mm3 (150-450); RBC Distribution Width CV 13.5 % (11.6-14.6); RBC Distribution Width SD 43.9 fl (35.1-43.9); Red Blood Count 4.68 M/mm3 (4.2-5.4); White Blood Count 8.3 K/mm3 (4.4-11.0)
[2022-07-27 06:41] LABS: Mucous, Urine 0 SEEN /hpf (<or=2+); Red Blood Cells-Urine 0 SEEN /hpf (0-5)
[2022-07-27 06:41] LABS: AST(SGOT) 21 U/L (15-37); Alanine Aminotransfer ALT/SGPT 37 U/L (13-56); Albumin, Serum 3.2 g/dL (3.2-5.0); Alkaline Phosphatase 126 U/L (45-117); Anion Gap 8 (5-15); BUN 7 mg/dL (7-18); BUN/Creat Ratio 9.7 RATIO (10-20); Bilirubin, Direct 0.12 mg/dL (0.00-0.30); Calcium,Total 8.8 mg/dL (8.5-10.1); Chloride 108 mmol/L (98-107); Creatinine, Serum 0.72 mg/dL (0.55-1.02); EST Glomerular Filtration Rate 104 mL/min (>60); Est Glom Filt Rate - Afr Amer 126 mL/min (>60); Estimated Creatinine Clearance 93.65 ml/min; Globulin 4.2 g/dL (2.2-4.2); Glucose 105 mg/dL (74-106); Lipase 36 U/L (13-75); Protein, Total 7.4 g/dL (6.4-8.2); Sodium Level 140 mmol/L (136-145)
[2022-07-27] MEDS: Ketorolac 30 MG/ML Syringe IV (06:41)
[2022-07-27] MEDS: 0.9% Normal Saline 1,000 ML 999 ML IV (06:41)
[2022-07-27] MEDS: Dicyclomine 20 MG/2 ML Vial IM (06:41)
[2022-07-27 06:42] LABS: Color, Urine Yellow (Yellow); Glucose, Dipstick Normal (Normal); Ketone-Dipstick Negative (Negative); Leukocyte Esterase-Dipstick 500 /ul (Negative); Nitrite-Dipstick Negative (Negative); Occult Blood-Urine Negative /ul (Negative); Protein-Dipstick 15 mg/dl (Negative); Urine Bilirubin Dipstick Negative (Negative); Urine Clarity Sl. Cloudy (Clear); Urine Urobilinogen Normal (Normal)
[2022-07-27 06:50] LABS: Bacteria 2+ /hpf (None Seen); Squamous Epithelial Cells - UA 0-5 SEEN /hpf (5-10); White Blood Cells 5-10 SEEN /hpf (0-5)
[2022-07-27 06:54] LABS: Internal QC Validated? YES +Cl - CLEAR BKGD
[2022-07-27 06:55] LABS: Pregnancy, Urine Negative Negative
[2022-07-27] MEDS: Smz/Tmp Ds Tablet 1 TABLET PO (07:25)
[2022-07-27 07:51] VITALS: BP 128/78; PULSE 80; RESP 16; O2SAT 99
== END 2022-07-27 07:52 | disposition home or self-care (01) ==
PROVIDERS: Emergency Provider Emergency Medicine; PCP Family Medicine; Visit Provider Emergency Medicine
DX: A08.4 Viral intestinal infection, unspecified (principal); N39.0 Urinary tract infection, site not specified; E66.9 Obesity, unspecified; Z79.899 Other long term (current) drug therapy
CPT/HCPCS: 80048; 80076; 81001; 81025; 83690; 85025; 87086; 87088; 96361; 96372; 96374; 99282; J7030; A4216

== ENCOUNTER → 2024-03-19 | Outpatient (CLI) | payer BC, SELFPAY ==
--- NOTE | 2024-03-19 07:43 | ECHOD_ITS ---
Reason For Study: SHORTNESS OF BREATH Procedure This was a 2D Doppler, Color Flow transthoracic echocardiogram. Exam performed in department. Left Ventricle Normal LV size. Left ventricular systolic function is normal. The left ventricular ejection fraction is 55 %. No regional wall motion abnormalities noted. Right Ventricle Normal RV size. Normal systolic function. Atria Normal left atrium. Normal right atrium. Mitral Valve Normal mitral valve. Tricuspid Valve Normal tricuspid valve. Mild tricuspid valve insufficiency. Aortic Valve Trisinus/trileaflet aortic valve. Pulmonic Valve Normal pulmonic valve. Great Vessels Normal aortic root. The pulmonary artery is normal size. Normal inferior vena cava. Pericardium/Pleural No pericardial effusion. MMode/2D Measurements & Calculations LVIDd: 4.0 cm IVSd: 1.1 cm LVOT diam: 2.0 cm LVIDs: 2.7 cm LVPWd: 1.1 cm LVOT area: 3.0 cm2 RVDd: 3.3 cm FS: 32.8 % asc Aorta Diam: 3.0 cm LAV(MOD-bp): 42.4 ml LVAd ap4: 26.2 cm2 LAV(MOD-bp) Indexed: 19.6 ml/m2 LVLd ap4: 7.8 cm LAV(MOD-sp2): 50.5 ml EDV(MOD-sp4): 71.9 ml LAV(MOD-sp4): 31.9 ml EDV(sp4-el): 74.5 ml LVAs ap4: 14.2 cm2 LVLs ap4: 6.4 cm ESV(MOD-sp4): 25.7 ml ESV(sp4-el): 26.6 ml EF(MOD-sp4): 64.3 % EF(sp4-el): 64.2 % LVAd ap2: 25.0 cm2 SV(MOD-sp4): 46.2 ml SV(MOD-sp2): 39.2 ml LVLd ap2: 7.5 cm SI(MOD-sp4): 21.4 ml/m2 SI(MOD-sp2): 18.1 ml/m2 EDV(MOD-sp2): 70.1 ml EDV(sp2-el): 71.0 ml LVAs ap2: 15.0 cm2 LVLs ap2: 6.1 cm ESV(MOD-sp2): 30.8 ml ESV(sp2-el): 31.0 ml EF(MOD-sp2): 56.0 % SV(sp4-el): 47.8 ml Ao sinus diam: 3.[address] Junction: 2.7 cm LA dimension(2D): 2.9 cm LA A4 area: 13.8 cm2 RA A4 area: 10.2 cm2 TAPSE: 1.8 cm Time Measurements MV dec time: 0.11 sec Doppler Measurements & Calculations MV E max ludwig: 88.0 cm/sec Lat Peak E' Ludwig: 12.2 cm/sec Med Peak E' Ludwig: 10.0 cm/sec MV A max ludwig: 62.1 cm/sec E/E' lat: 7.2 E/E' med: 8.8 MV E/A: 1.4 MV dec slope: 801.4 cm/sec2 Ao V2 max: 132.4 cm/sec LV V1 max: 108.2 cm/sec Ao max P.0 mmHg LV V1 max P.7 mmHg Ao V2 mean: 97.4 cm/sec LV V1 mean P.9 mmHg Ao mean P.2 mmHg LV V1 mean: 81.8 cm/sec Ao V2 VTI: 25.3 cm LV V1 VTI: 21.3 cm AV (velocity ratio): 0.84 HOME(I,D): 2.6 cm2 HOME(V,D): 2.5 cm2 SV(LVOT): 64.5 ml PA V2 max: 90.1 cm/sec TR max ludwig: 208.0 cm/sec TR max P.3 mmHg ECHO/Echo Complete Interpretation Summary Normal LV size. Left ventricular systolic function is normal. The left ventricular ejection fraction is 55 %. Structurally normal valves. Ordering Physician: Elsy Hallman Referring Physician: Elsy Hallman Performed By: Nancy Meehan RDCS
== END | disposition home or self-care (01) ==
LOC: CVS 07:42
PROVIDERS: PCP Internal Medicine; Referring Provider Internal Medicine; Visit Provider Internal Medicine
DX: R06.02 Shortness of breath (principal)
CPT/HCPCS: 93306

== ENCOUNTER → 2024-04-15 | Outpatient (CLI) | payer BC, SELFPAY ==
--- NOTE | 2024-04-15 14:04 | US_ITS ---
INDICATION: IUD PLACEMENT EXAMINATION: Ultrasound US Transvaginal Non-OB TECHNIQUE: Transvaginal (for optimal evaluation of the adnexa) pelvic ultrasound was performed. Grayscale, spectral waveform, and color flow Doppler evaluation of the adnexa. COMPARISON: None. FINDINGS: UTERUS: Anteverted. The uterus measures 7.3 x 3.6 x 2.6 cm. There is no uterine mass. The endometrial stripe measures 3 mm in AP diameter which is within normal limits. Echogenic portion of IUD seen in the endometrium extending to the fundus with echogenic strands extending to the external cervical os. Echogenic lesion within the endometrium, possible polyp measures 1 x 2 x 3 mm. RIGHT OVARY: 2.5 x 1.5 x 1.2 cm. Non-enlarged, normal echogenicity. Normal color flow demonstrated. LEFT OVARY: 2.3 x 1.4 x 1.4 cm. Non-enlarged, normal echogenicity. Normal color flow demonstrated. Prominent and dilated vessels associated with the left adnexa. FREE FLUID: None. US/Transvaginal Non- IMPRESSION: IUD located in the endometrium extend into the fundus. Echogenic strings extending to the cervical loss. Possible endometrial polyp measuring up to 3 mm. Electronically Signed: Francisco Javier Perez MD at 15:31 EST ,
== END | disposition home or self-care (01) ==
LOC: US 13:59
PROVIDERS: PCP Internal Medicine
DX: Z30.431 Encounter for routine checking of intrauterine contraceptive device (principal)
CPT/HCPCS: 76830